=== PATIENT | male | born 1995 | race Caucasian/White ===

== ENCOUNTER 2021-05-12 10:13 | Inpatient (IN) | payer BC, SELFPAY ==
[2021-05-12] VITALS (47 sets, daily range): BP systolic 113–149; BP diastolic 53–83; PULSE 72–114; RESP 12–27; TEMP 36.8–37.2; O2SAT 89–98; BMI 29.3; BMI 29.1
--- NOTE | 2021-05-12 10:20 | XR_ITS ---
WS: [id number] Portable AP upright chest, 05/12/2021 Clinical Data: SOB Comparison: Portable chest, 05/11/2021. Findings: The 50% right pneumothorax remains the same. There is a shift of the heart and mediastinum from right to left. The left lung is fully expanded. Monitor leads are on the chest wall. XR/XR chest 1V portable [id number] Impression: No change in 50% right pneumothorax.
--- NOTE | 2021-05-12 10:25 | ECG_ITS ---
[facility] Test Date: 2021-05-12 Pat Name: Driss Giraldo Department: Room: Gender: Male Research Fellow: : 1995 Requested By: Thompson Salinas Order Number: [id number] Gallardo MD: Jayleen Johansen M.D. Measurements Intervals [place] Rate: 109 P: 89 RI: 167 QRS: 83 QRSD: 98 T: 60 QT: 323 QTc: 435 Interpretive Statements SINUS TACHYCARDIA POSSIBLE RIGHT VENTRICULAR CONDUCTION DELAY [RSR (QR) IN V1/V2] MODERATE VOLTAGE CRITERIA FOR LVH, CONSIDER NORMAL VARIANT [MEETS CRITERIA IN ONE OF: R(aVL), S(V1), R(V5), R(V5/V6)+S(V1)] MODERATE ST DEPRESSION [0.05+ mV ST DEPRESSION] No previous ECG available for comparison Electronically Signed On 05-13-2021 14:17:47 CDT by Jayleen Johansen M.D. [id number]
--- NOTE | 2021-05-12 10:32 | ED_ITS ---
HPI - SOB/Dyspnea General: Chief Complaint: Shortness of Breath/Dyspnea Stated Complaint: SOB Time Seen by Provider: 05/12/21 10:20 History of Present Illness: HPI Narrative: This patient is a 26-year-old male who presents to the emergency department with complaint of shortness of breath that began yesterday morning. Patient was seen at a local clinic had a chest x- ray was read as normal however radiology over read stated that the patient appeared to have a pneumothorax. Patient denies any history of pneumothorax denies any history of coughing denies any history of smoking. Upon evaluation in the emergency department bedside chest x-ray performed appears to have greater than 50% loss of lung volume on the right due to spontaneous pneumothorax. Patient is slightly tachycardic at 112. I did discuss at length with patient about options. He is agreeable to have chest tube placed right chest. Nursing staff will get consents. Will prepare for chest MD elicited complaint: shortness of breath Exacerbating factors: nothing Relieving factors: nothing Associated symptoms: Deny abdominal pain, chest pain, extremity pain, fever(s), lightheadedness, nausea, palpitations or vomiting Review of Systems General: Reports: 10 or more systems reviewed and unremarkable except in HPI and below Const: Denies: fever(s), chills, body aches or fatigue Eyes: Denies: change in vision or blurry vision ENMT: Denies: throat pain, hoarseness or mouth pain Card: Denies: chest pain, palpitations, irregular heart rhythm, edema, swelling of feet/ankles or lightheadedness Resp: Reports: dyspnea; Denies: productive cough, non-productive cough, wheezing or pain on inspiration GI: Denies: abdominal pain, nausea or vomiting : Denies: flank pain, dysuria, urinary frequency, urinary urgency or urinary hesitancy Musc: Denies: neck pain, back pain, extremity pain, extremity swelling, joint pain, joint swelling, joint redness, joint warmth or limited range of motion Skin/Breast: Denies: rash, pruritus, erythema or skin tenderness Neuro: Denies: headache(s), numbness in extremities or weakness in extremities Psych: Denies: anxiety or depression Physical Exam Const: COMMON NORMALS: no acute distress, average body habitus, patient oriented x3, no limitations, healthy appearing, alert and well nourished HENMT: COMMON NORMALS: normocephalic, atraumatic, hearing grossly normal bilaterally, external ears normal, EAC's normal, TM's normal bilaterally, Normal external nose present, Normal nasal mucous membranes and turbinates present, moist oral mucous membranes, oropharynx normal, dentition normal and gingiva normal HEAD & SCALP: normocephalic and atraumatic NOSE: Normal external nose present and Normal nasal mucous membranes and turbinates present EXTERNAL EAR: Yes external ears normal EXTERNAL AUDITORY CANAL: EAC's normal TYMPANIC MEMBRANE: TM's normal bilaterally Neck/C-Spine: COMMON NORMALS: full ROM, no lymphadenopathy, supple, no meningeal signs, no JVD, Thyroid normal and No carotid bruits THYROID: Thyroid normal Chest: COMMONS NORMALS: normal inspection of the chest, normal palpation of entire chest wall, normal inspection of the breasts and normal palpation of the breasts Breast/axilla inspection: Yes normal inspection of the breasts BREAST/AXILLA PALPATION: Yes normal palpation of the breasts Resp: COMMON NORMALS: normal respiratory effort, No retractions and No use of accessory muscles EFFORT & INSPECTION: Yes able to speak in complete sentences AUSCULTATION: breath sounds absent (Breath sounds absent in the upper lobes.) on the right Cardio: COMMON NORMALS: no JVD, regular rate, regular rhythm, S1 normal heart sound present, S2 normal heart sound present, No gallops present (Cardio), No clicks present (Cardio), No murmurs present (Cardio), No rub (Cardio) and Peripheral pulses 2+ throughout RATE: regular rate RHYTHM: regular rhythm HEART SOUNDS: S1 normal heart sound present and S2 normal heart sound present PERIPHERAL PULSES: Peripheral pulses 2+ throughout GI: COMMON NORMALS: Normal to inspection, nondistended, normoactive bowel sounds present, Soft to palpation, non-tender, No hepatosplenomegaly present, no masses and no bruits PALPATION: Yes Soft to palpation and Yes No hepatosplenomegaly present : COMMON NORMALS: Yes no CVA tenderness BLADDER/KIDNEY EXAM: Yes no CVA tenderness Back/Pelvis: COMMON NORMALS: no CVA tenderness, thoracic and lumbar spine normal to inspection, no thoracic nor lumbar tenderness, thoraco-lumbar ROM normal and straight leg raise negative bilaterally Extremity: COMMON NORMALS: normal to inspection, full ROM, capillary refill normal, no joint enlargement, no clubbing, cyanosis or edema, no calf tenderness and no pedal edema Neuro: COMMON NORMALS: patient oriented x3 SENSORIUM/ORIENTATION: Yes alert MENINGEAL SIGNS: Yes no meningeal signs Procedures Chest Tube Chest Tube 1: Chest Tube Location: right and anterior axillary line Chest Tube Prep: Yes betadine prep and sterile drapes applied Local Anesthetic: lidocaine 2% Amount of anesthesia used (mL): 20 Incision Made With: #11 blade Post Procedure: sutured to skin and sterile dressing applied Tube Drainage: none Post Procedure CXR?: Yes Progress: Patient tolerated well without difficulty. Course Reevaluation(s): Reevaluation #1: Patient properly consented. Reviewed x-ray with patient. Chest tube placed without difficulty. Low wall suction with waterseal. 20 Azerbaijani chest tube. In the right for the 6 intercostal space. Anterior axillary line. Patient tolerated without difficulty Time: 11:12 Consultations: Consultation #1: I spoke to Dr. Miller who is agreeable to admit this patient for continued monitoring. Also spoke to Dr. Lovett pulmonology. He is agreed to manage chest tube. Time: 12:18 Vital Signs: Vital signs: Vital Signs Respiratory Rate 18 05/12/21 10:40 MDM - SOB/Dyspnea MDM Narrative: Medical decision making narrative: This patient is a 26-year-old male who presents to the emergency department with complaint of shortness of breath that began yesterday morning. Patient was seen at a local clinic had a chest x-ray was read as normal however radiology over read stated that the patient appeared to have a pneumothorax. Patient denies any history of pneumothorax denies any history of coughing denies any history of smoking. Upon evaluation in the emergency department bedside chest x-ray performed appears to have greater than 50% loss of lung volume on the right due to spontaneous pneumothorax. Patient is slightly tachycardic at 112. I did discuss at length with patient about options. He is agreeable to have chest tube placed right chest. Nursing staff will get consents. Patient properly consented. Reviewed x-ray with patient. Chest tube placed without difficulty. Low wall suction with waterseal. 20 Azerbaijani chest tube. In the right for the 6 intercostal space. Anterior axillary line. Patient tolerated without difficulty I spoke to Dr. Miller who is agreeable to admit this patient for continued monitoring. Also spoke to Dr. Lovett pulmonology. He is agreed to manage chest tube. Dr. Miller states he will notify general surgery. For additional consult Medical Records: Attestation: I reviewed the patient's medical records. Lab Data: Attestation: I reviewed the patient's lab results. Labs: Lab Results 05/12/21 05/12/21 05/12/21 Range/Units 10:30 10:30 10:30 WBC 6.5 (4.0-10.0) 10^3/ uL RBC 5.55 H (4.1-5.3) 10^6/u L Hgb 16.5 (11.7-16.6) g/dL Hct 48.3 (42.0-52.0) % MCV 87.0 (80-94) fL MCH 29.7 (28.0-34.0) pg MCHC 34.2 (30.0-36.0) g/dL RDW 12.2 (12.1-15.1) % Plt Count 304 (130-400) 10^3/c mm MPV 9.3 (7.4-10.4) fL Neut % (Auto) 65.5 % Lymph % (Auto) 24.7 % [place] % (Auto) 8.6 % Eos % (Auto) 0.5 % Baso % (Auto) 0.5 % Neut # (Auto) 4.26 (1.8-7.7) 10^3/u L Lymph # (Auto) 1.6 (0.8-4.8) 10^3/u L [place] # (Auto) 0.6 (0.2-0.9) 10^3/u L Eos # (Auto) 0.0 (0.0-0.8) 10^3/u L Baso # (Auto) 0.0 (0.0-0.1) 10^3/u L Nucleated RBC % (a uto) 0 % Nucleated RBCs # 0.0 /100WBC PT 14.20 (12.1-14.9) SECO NDS INR 1.07 (0.8-1.2) APTT 29.9 (23.9-36.7) SECO NDS Sodium 137 (136-145) mmol/L Potassium 4.3 (3.5-5.1) mmol/L Chloride 99 (98-107) mmol/L Carbon Dioxide 26 (22-29) mmol/L Anion Gap 16.3 (5-19) BUN 12 (6-20) mg/dL Creatinine 0.8 (0.7-1.2) mg/dL GFR Calculation 118.8 (90-130) mL/min Glucose 95 (65-115) mg/dL Calculated Osmolal ity 284 L (285-295) mOsm/k g Calcium 10.3 (8.5-10.5) mg/dL Imaging Data^: CXR: Attestation: I personally reviewed and interpreted this imaging study as follows: Radiologist's impression: Findings: The 50% right pneumothorax remains the same. There is a shift of the heart and mediastinum from right to left. The left lung is fully expanded. Monitor leads are on the chest wall. CX2: Attestation: I personally reviewed and interpreted this imaging study as follows: Radiologist's impression: Impression: Insertion of right chest tube with almost total reexpansion of the right lung. EKG Data^: EKG 1: Attestation: I personally reviewed and interpreted this EKG as follows: EKG Interpretation Date: 05/12/21 EKG interpretation time: 10:33 Prior EKG tracings: not available for review Interpretation: Sinus tachycardia heart rate 109. Nonspecific EKG changes. Discharge Plan Discharge Patient Disposition: Admitted As Inpatient Clinical Impression: Spontaneous pneumothorax Condition: Stable Coding Level of Care Code ED Machine Cementer for Chg Fwd Exam Comprehensive
[2021-05-12] MEDS: sodium chloride 0.9% 500 ML IV (10:38)
[2021-05-12 10:39] LABS: Basophils % 0.5 %; Eosinophils % 0.5 %; Hematocrit 48.3 % (42.0-52.0); Hemoglobin 16.5 g/dL (11.7-16.6); Lymphocytes # 1.6 10^3/uL (0.8-4.8); Lymphocytes % 24.7 %; Mean Corpuscular HGB Conc 34.2 g/dL (30.0-36.0); Mean Corpuscular Hemoglobin 29.7 pg (28.0-34.0); Mean Platelet Volume 9.3 fL (7.4-10.4); Monocytes # 0.6 10^3/uL (0.2-0.9); Monocytes % 8.6 %; Neutrophils # 4.26 10^3/uL (1.8-7.7); Neutrophils % 65.5 %; Nucleated Red Blood Cells % 0 %; Platelet Count 304 10^3/cmm (130-400); Red Blood Count 5.55 10^6/uL (4.1-5.3); Red Cell Distribution Width 12.2 % (12.1-15.1); White Blood Count 6.5 10^3/uL (4.0-10.0)
[2021-05-12] MEDS: lidocaine 2% INJ 20 mL INJECTION (10:39)
[2021-05-12] MEDS: ondansetron 2 mg/ML SDV 2 mL 4 MG IVP (10:40)
[2021-05-12] MEDS: morphine 4 mg/mL SDV 1 mL IVP (10:40)
[2021-05-12] MEDS: midazolam 1 mg/mL INJ 2 mL 0.5 MG IVP (10:42)
[2021-05-12 10:51] LABS: INR 1.07 (0.8-1.2)
[2021-05-12 10:52] LABS: Partial Thromboplastin Time 29.9 SECONDS (23.9-36.7)
[2021-05-12 11:01] LABS: Anion Gap 16.3 (5-19); Blood Urea Nitrogen 12 mg/dL (6-20); Calcium 10.3 mg/dL (8.5-10.5); Carbon Dioxide 26 mmol/L (22-29); Chloride 99 mmol/L (98-107); Glomerular Filtration Rate 118.8 mL/min (90-130); Glucose 95 mg/dL (65-115); Osmolality Calculated 284 mOsm/kg (285-295); Potassium 4.3 mmol/L (3.5-5.1); Sodium 137 mmol/L (136-145)
--- NOTE | 2021-05-12 11:10 | XR_ITS ---
WS: [id number] Portable AP semiupright chest, 05/12/2021, 1109 hours. Clinical Data: Chest Tube Comparison: Portable chest, 05/12/2021, 1023 hours Findings: A right chest tube has been inserted and the lung has almost totally reexpanded. Only a 5 o r 10% right apical pneumothorax is present. The left lung remains fully expanded. There are monitor l roz on the chest wall. XR/XR chest 1V portable [id number] Impression: Insertion of right chest tube with almost total reexpansion of the right lung.
--- NOTE | 2021-05-12 11:33 | PC.PHAR ---
pt states he takes care of his own medications-pt states he takes no rx medications and states he has only been taking the otc medications entered
--- NOTE | 2021-05-12 12:50 | P.HP_ITS ---
Providers/Chief Complaint Admitting Physician: Kristin Miller Chief Complaint: SOB History of Present Illness Driss Giraldo JR is a 26 year old male With no past medical history who presented to the hospital with a 2 day history of chest pain. This was associated with mild respiratory distress. Patient was seen over increased clinic where he had a chest x-ray performed.This showed a moderate right-sided pneumothorax with compression of approximately 50% of underlying lung. At this point he was contacted and advised to present to emergency room immediately for chest tube placement. Left lung was well area did. Patient denies any recent fever, chills, nausea vomiting. No recent trauma.Upon arrival to emergency room a right-sided chest tube was placed with repeat x-ray showing almost total re- expansion of the right lung.Laboratory workup showed a WBC of 6.5, hemoglobin of 16.5, hematocrit of 48.3 and platelet count of 304. INR 1.07. Sodium 137, potassium 4.3, chloride 99, bicarb 26, BUN 12 and creatinine 0.8. Urinalysis was negative. Pulmonary medicine was consulted in ER. Review of Systems General: Reports: 10 or more systems reviewed and unremarkable except in HPI and below Medications/Allergies Home Medications Medication Instructions Recorded Confirmed Last Taken Type acetaminophen [Tylenol Extra 1,000 mg PO PRN 05/12/21 05/12/21 05/11/21 History Strength] calcium carbonate [Tums] 200 mg PO PRN 05/12/21 05/12/21 05/11/21 History ibuprofen 400 mg PO PRN 05/12/21 05/12/21 Unknown History Allergies Allergy/AdvReac Type Severity Reaction Status Date / Time No Known Allergies Allergy Unverified 05/12/21 11:33 PFSH Acute PFSH: Medical History (Updated 05/12/21 @ 14:54 by Kristin Miller MD) No pertinent family history No pertinent past medical history Surgical History (Updated 05/12/21 @ 14:54 by Kristin Miller MD) No pertinent past surgical history Social History (Updated 05/12/21 @ 14:55 by Kristin Miller MD) Smoking and tobacco status: never smoked Alcohol intake: current Substance/Drug Use: never Vitals/I&O/Wt Last Vital Signs Pulse 91 05/12/21 14:41 Resp 12 05/12/21 14:41 BP 128/69 05/12/21 14:41 Pulse Ox 98 05/12/21 14:41 05/11/21 05/12/21 05/12/21 22:59 06:59 14:59 Intake Total 500 / 500 Balance 500 / 500 Weight last 48 hrs Weight 82.554 kg Physical Exam Narrative: EXAM NARRATIVE: General-alert awakeAnd oriented x3 HEENT-grossly unremarkable CVS -regular rate rhythm Chest- decreased a right base otherwise clear Abdomen-soft nontender nondistended Extremities-no edema Data : 05/12/21 10:30 05/12/21 10:30 A&P Assessment and plan (1) Spontaneous pneumothorax: Chest tube in place Air leak noted Continue with suction Repeat Chest x-ray in am If no air-leak in am then place to water seal Pulmonary medicine on board CTS consult not available Pain control Status: Acute Attestations Medical Necessity Statement*: Require over 2 midnight stay in hospital for management of spontaneous pneumothorax requiring right-sided chest tube placement Time Spent in Patient Care: Greater than 35 minutes (>than 50% of time spent in counselling and/or direct pt care on unit) . Coding Level of Care Code Acute Tuckpointer Cleaner Caulker for Kevin Bower Diagnoses Spontaneous pneumothorax J93.83
[2021-05-12] MEDS: HYDROcodone-acetaminophen 5-325 mg Tablet 1 TAB PO ×3 (13:51→23:35)
[2021-05-12] MEDS: sodium chloride 0.9% 1,000 ML 75 ML IV (13:52)
[2021-05-12 14:21] LABS: Add Urine Microscopic? NO; Charge for UA Resulting for Rev
[2021-05-12 14:24] LABS: Bilirubin Urine Neg (Negative); Blood Urine Neg (Negative); Glucose Urine UA Norm (Normal); Ketones Urine 1+ (Negative); Leukocyte Esterase Urine Negative (Negative); Nitrate Urine Negative (Negative); Protein Urine Neg (Negative); Urine Appearance Clear (CLEAR); Urine Color Dark Yellow (Yellow); Urobilinogen Urine Norm (Negative); pH Urine 5 (5-7)
--- NOTE | 2021-05-12 17:06 | PM.CONSULT ---
Providers/Reason For Consult Consulting Physician/Specialty*: Pulmonary critical care medicine Reason for Consult*: Primary spontaneous pneumothorax Attending Physician: Kristin Miller History of Present Illness History of Present Illness Driss Giraldo JR is a 26 year old male who presented to the hospital after receiving a phone call from the radiology facility. I evaluated the patient in the ICU. The patient tells me that yesterday he started experiencing chest pain on the right side and shortness of breath that started around in the morning time. The patient received a chest x-ray around noontime yesterday and was told that it was normal. However today on further review the patient was found to have a right-sided pneumothorax and was asked to come to the hospital. The patient complains of persistent chest pain and some degree of shortness of breath until he presented to the hospital today in the emergency department the patient underwent a chest tube placement with complete resolution of the pneumothorax. The patient was then transferred to ICU for further care. I had reviewed the patient's chest x-rays that were performed yesterday and today. Interestingly, there has been no significant increase in the pneumothorax. There was no evidence of tension pneumothorax either. There was mild mediastinal reported shift. However this had remained stable for almost 24 hours. In the ICU, the patient is complaining of chest pain at the chest tube insertion site with movement and coughing. The patient was initially on suction and when I went to see the patient he was on waterseal. There is evidence of mild air leak on forced expiration. The patient denies any history of smoking or marijuana use. Review of Systems Narrative: General: No fevers chills night sweats or fatigue Skin: No rash HEENT: No nasal congestion, rhinitis, sinusitis, sneezing, hoarseness of voice. Neck: There is no neck swelling, mass or swollen glands. Respiratory: Please see my HPI. Cardiovascular: No palpitation Gastrointestinal: No abdominal pain, nausea, vomiting, melena Musculoskeletal: No joint pain or swelling, muscle weakness, morning stiffness, numbness or tingling. Neurological: Patient is awake alert and oriented x3, no paralysis, gross motor function is normal. Psychiatric: No anxiety or depression. Meds/Allergies Home Medications and Allergies Home Medications Medication Instructions Recorded Confirmed Last Taken Type acetaminophen [Tylenol Extra 1,000 mg PO PRN 05/12/21 05/12/21 05/11/21 History Strength] calcium carbonate [Tums] 200 mg PO PRN 05/12/21 05/12/21 05/11/21 History ibuprofen 400 mg PO PRN 05/12/21 05/12/21 Unknown History Allergies Allergy/AdvReac Type Severity Reaction Status Date / Time No Known Allergies Allergy Unverified 05/12/21 11:33 Current Medications Current Medications Generic Name Dose Route Start Last Admin Trade Name Freq PRN Reason Stop Dose Admin Hydrocodone Bitart/Acetaminophen 1 tab 05/12/21 12:16 05/12/21 13:51 Hydrocodone-Acetaminophen 5-325 Mg Tablet PO 1 tab Q4H PRN Administration MODERATE PAIN Sodium Chloride 1,000 mls @ 75 mls/hr 05/12/21 12:30 05/12/21 13:52 Sodium Chloride 0.9% IV 75 mls/hr .[id number] GIL Administration PFSH Acute PFSH: Medical History No pertinent family history No pertinent past medical history Surgical History No pertinent past surgical history Social History Smoking and tobacco status: never smoked Alcohol intake: current Substance/Drug Use: never Vitals/I&O/Wt Last Vital Signs Temp 98.6 F 05/12/21 14:00 Pulse 87 05/12/21 16:04 Resp 16 05/12/21 16:02 BP 131/77 05/12/21 15:48 Pulse Ox 95 05/12/21 16:02 05/12/21 05/12/21 05/12/21 06:59 14:59 22:59 Intake Total 500 / 500 Balance 500 / 500 Weight last 48 hrs Weight 180 lb 8 oz Weight 182 lb Physical Exam Narrative: EXAM NARRATIVE: General: Patient is awake alert and oriented, in no distress. Mild discomfort with movement due to pain at the chest tube insertion site Neck: No JVD Respiratory: Inspection: No visible deformity of the chest wall, chest tube in place Palpation: Trachea is mildly deviated to the right, reduced expansion the right hemithorax Percussion: Bilateral tympanic percussion note both anterior and posteriorly Auscultation: Mildly reduced breath sound on the right, no crackles wheezing or rhonchi Cardiovascular: Regular rate and rhythm, S1-S2 present, no murmur, no peripheral edema. Abdomen: Soft, nontender, nondistended, positive bowel sound Musculoskeletal: No obvious joint deformity, normal gait. Skin: No rash, no evidence of erythema nodosum or multiforme. Neuro: Mental status is normal, no gross cranial nerve deficit, normal motor and coordination. A&P Assessment and plan (1) Primary spontaneous pneumothorax: The patient is suffering from primary spontaneous pneumothorax. He does not have any previous history of lung disease. Interestingly, there has been no significant progression of the pneumothorax in the past 24 hours. There had been some concern for mediastinal shift however there has been no definitive evidence of tension. The patient was not hypotensive or hypoxic. It appears, that the right-sided pneumothorax had resolved after the chest tube insertion. The chest tube was initially on suction. I did not see any significant air leak on suction. There was small volume air leak with forced expiration. For now, I will put the patient on waterseal. We will repeat a chest x-ray at 9 PM. If there is no reaccumulation of the pneumothorax, the patient can stay on waterseal. Tomorrow morning at 6 AM, we will obtain a chest x-ray and if there is no pneumothorax, the chest tube can be clamped and repeat chest x-ray can be obtained in 2 hours. If there is no reaccumulation of pneumothorax, at that point, the chest tube can be safely removed. I will communicate this with the ICU team tomorrow. The patient needs pain control as well as DVT prophylaxis. He does not need pleurodesis at this time. Pleurodesis would be recommended if the patient develops a second episode of primary spontaneous pneumothorax. Status: Acute Coding Level of Care Code Acute Senior Quality Control Inspector for [facility] Diagnoses Primary spontaneous pneumothorax J93.11
[2021-05-12] MEDS: HYDROmorphone 1 mg/mL INJ 1 mL 0.4 MG IVP (20:27)
--- NOTE | 2021-05-12 21:00 | XRR_ITS ---
PROCEDURE INFORMATION: Exam: XR Chest Exam date and time: 05/12/2021 9:00 PM Age: 26 years old Clinical indication: Condition or disease; Other: F/u chest tube; Additional info: Pneumothorax TECHNIQUE: Imaging protocol: XR of the chest. Views: 1 view. Total images: 1 COMPARISON: CR XR chest 1V portable [id number] 05/12/2021 11:07 AM FINDINGS: Tubes, catheters and devices: Right thoracotomy tube unchanged in position. Lungs: Minimal discoid atelectasis right lung base. No other evidence of active interstitial or alveolar airspace disease. Pleural spaces: No visible residual right pneumothorax. No visible pleural effusion. Heart/Mediastinum: Cardiac structures and configuration within normal limits. Bones/joints: Unremarkable. XR/XR chest 1V [id number] IMPRESSION: No visible residual right pneumothorax.
[2021-05-13] VITALS (61 sets, daily range): BP systolic 118–148; BP diastolic 61–80; PULSE 68–99; RESP 7–27; TEMP 36.7–37.1; O2SAT 93–97
[2021-05-13] MEDS: HYDROmorphone 1 mg/mL INJ 1 mL 0.4 MG IVP ×2 (03:58→12:57)
[2021-05-13 05:02] LABS: Basophils % 0.3 %; Eosinophils # 0.1 10^3/uL (0.0-0.8); Eosinophils % 1.4 %; Hematocrit 44.2 % (42.0-52.0); Hemoglobin 14.9 g/dL (11.7-16.6); Lymphocytes # 1.3 10^3/uL (0.8-4.8); Lymphocytes % 22.8 %; Mean Corpuscular HGB Conc 33.7 g/dL (30.0-36.0); Mean Corpuscular Hemoglobin 30.1 pg (28.0-34.0); Mean Corpuscular Volume 89.3 fL (80-94); Mean Platelet Volume 9.2 fL (7.4-10.4); Monocytes # 0.6 10^3/uL (0.2-0.9); Neutrophils # 3.85 10^3/uL (1.8-7.7); Neutrophils % 65.3 %; Nucleated Red Blood Cells % 0 %; Platelet Count 211 10^3/cmm (130-400); Red Blood Count 4.95 10^6/uL (4.1-5.3); Red Cell Distribution Width 12.4 % (12.1-15.1); White Blood Count 5.9 10^3/uL (4.0-10.0)
[2021-05-13] MEDS: sodium chloride 0.9% 1,000 ML 75 ML IV (05:07)
[2021-05-13 05:15] LABS: Alanine Aminotransferase 13 U/L (0-41); Albumin Level 4.2 g/dL (3.5-5.2); Alkaline Phosphatase 54 IU/L (40-130); Aspartate Amino Transferase 14 U/L (0-40); Blood Urea Nitrogen 10 mg/dL (6-20); Calcium 9.2 mg/dL (8.5-10.5); Carbon Dioxide 26 mmol/L (22-29); Chloride 102 mmol/L (98-107); Globulin 2.7 g/dL (1.3-4.6); Glomerular Filtration Rate 138.6 mL/min (90-130); Glucose 101 mg/dL (65-115); Osmolality Calculated 287 mOsm/kg (285-295); Sodium 139 mmol/L (136-145); Total Bilirubin 1.7 mg/dL (0.15-1.2); Total Protein 6.9 g/dL (6.6-8.7)
[2021-05-13] MEDS: HYDROcodone-acetaminophen 5-325 mg Tablet 1 TAB PO (06:22)
--- NOTE | 2021-05-13 07:00 | XR_ITS ---
WS: [id number] Portable AP upright chest, 05/13/2021 Clinical Data: respiratory failure Comparison: 05/12/2021 Findings: No nodules, masses or effusions are seen. The heart is normal. The pulmonary vascularity is not increased. No pneumonia or pneumothorax is seen. The chest tube remains in good position ending in the superior aspect of the right pleural space.. Monitor leads are on the chest wall. XR/XR chest 1V portable [id number] Impression: No recurrent pneumothorax.
--- NOTE | 2021-05-13 11:30 | XR_ITS ---
WS: [id number] Portable AP upright chest, 05/13/2021, 1139 hours. Clinical Data: Pneumothorax Comparison: Portable chest, today, 0714 hours. Findings: The right lung remains expanded. The position of the right chest tube is not changed. There are monitor leads on the chest wall. XR/XR chest 1V portable [id number] Impression: Continued expansion of right lung with no recurrent pneumothorax.
--- NOTE | 2021-05-13 12:50 | P.PN_ITS ---
Subjective Subjective: Interval history: Noted improvement in respiratory status. Was complaining of pain due to chest tube. No fever chills overnight. No nausea vomiting. Patient did however note that he was diagnosed with COVID-19 infection 3 months prior however during that time did not have any respiratory complaints. Does not smoke however is exposed to significant secondhand smoke. Medications: Reviewed: Yes Vitals/I&O/Wt Last Vital Signs Temp 98.1 F 05/13/21 06:45 Pulse 98 05/13/21 11:15 Resp 17 05/13/21 11:15 BP 141/77 05/13/21 11:15 Pulse Ox 97 05/13/21 11:15 05/12/21 05/13/21 05/13/21 22:59 06:59 14:59 Intake Total 120 / 620 1200 / 1820 Output Total 325 / 325 Balance -205 / 295 1200 / 1495 Weight last 48 hrs Weight 83.325 kg Weight 81.873 kg Weight 82.554 kg Physical Exam Narrative: EXAM NARRATIVE: General-alert awakeAnd oriented x3 HEENT-grossly unremarkable CVS -regular rate rhythm Chest- decreased a right base otherwise clear Abdomen-soft nontender nondistended Extremities-no edema Data : 05/13/21 04:45 05/13/21 04:45 A&P Assessment and plan (1) Spontaneous pneumothorax: Chest tube in place No further air leak Chest x-ray- showed no evidence of recurrent pneumothorax Chest tube was placed to water seal Management per pulmonary medicine CTS consult not available Pain control Will transfer to regular medical floor Status: Acute Attestations Medical Necessity Statement*: require further hospitalization for management of pneumothorax status post chest tube Time Spent in Patient Care: Greater than 35 minutes (>than 50% of time spent in counselling and/or direct pt care on unit) . Coding Level of Care Code Acute Multi Share Program Coordinator for Kevin Bower Diagnoses Spontaneous pneumothorax J93.83
--- NOTE | 2021-05-13 13:26 | P.PN_ITS ---
Subjective Subjective: Interval history: The patient was seen and examined. He had done well overnight. The pain was controlled with pain medications. Chest x-ray at 9 PM last night did not reveal any pneumothorax. After that, this morning the chest tube was clamped repeat chest x-ray in 2 hours did not reveal any pneumothorax. The chest tube was subsequently removed without any difficulty. Medications: Reviewed: Yes Vitals/I&O/Wt Last Vital Signs Temp 98.1 F 05/13/21 06:45 Pulse 98 05/13/21 11:15 Resp 16 05/13/21 12:57 BP 141/77 05/13/21 11:15 Pulse Ox 97 05/13/21 12:57 05/12/21 05/13/21 05/13/21 22:59 06:59 14:59 Intake Total 120 / 620 1200 / 1820 Output Total 325 / 325 Balance -205 / 295 1200 / 1495 Weight last 48 hrs Weight 183 lb 11.2 oz Weight 180 lb 8 oz Weight 182 lb Physical Exam Narrative: EXAM NARRATIVE: General: Patient is awake alert and oriented, in no distress Respiratory: Auscultation: Clear to auscultation bilaterally, no crackles wheezing or rhonchi Cardiovascular: Regular rate and rhythm, S1-S2 present, no murmur, no peripheral edema. Abdomen: Soft, nontender, nondistended, positive bowel sound Musculoskeletal: No obvious joint deformity, normal gait. Skin: No rash, no evidence of erythema nodosum or multiforme. Neuro: Mental status is normal, no gross cranial nerve deficit, normal motor and coordination. Data : 05/13/21 04:45 05/13/21 04:45 Attestation for Other Data: I personally reviewed and interpreted the following: Other data: I have reviewed the patient's laboratory, microbiologic and radiologic data. The chest x-ray obtained at 9 PM last night and 7 AM this morning did not reveal any recurrence of pneumothorax. A&P Assessment and plan (1) Primary spontaneous pneumothorax: The chest tube has been removed. I will obtain a repeat chest x-ray in 2 hours time. If there is no symptoms or significant pneumothorax, the patient will be ready for discharge. I will follow up with him on Sunday in the office. Status: Acute Attestations Medical Necessity Statement*: Will defer to the primary team Coding Level of Care Code Acute Senior Economist for Chg Fwd Diagnoses Primary spontaneous pneumothorax J93.11
--- NOTE | 2021-05-13 14:20 | PC.NURSE ---
Nurse Assisted Dr Lovett with chest drain removal. No complications. Orders Xray for 2 hours after removal to check for recurrent pneumo.
--- NOTE | 2021-05-13 15:30 | XR_ITS ---
WS: [id number] Portable AP upright chest, 05/13/2021, 1537 hours. Clinical Data: Pneumothorax Comparison: Portable chest, 05/13/2021, 1139 hours Findings: Right chest tube has been removed. The right lung remains expanded. There is no recurrence of the pneumothorax. XR/XR chest 1V portable [id number] Impression: Right lung remains expanded following removal of right chest tube.
--- NOTE | 2021-05-13 16:00 | P.DS_ITS ---
Discharge Providers Date of Admission: 05/12/21 12:16 Date of Discharge: May 13, 2021 Attending Provider at Admission: Kristin Miller Attending Provider at Discharge: Kristin Miller Diagnoses at Discharge Discharge Diagnosis (1) Spontaneous pneumothorax: Status: Acute (2) Primary spontaneous pneumothorax: Status: Acute Reason for Visit Reason for Visit: SOB Hospital Course Hospital Course 26 year old male with past medical history sig for covid-19 infection 3 months prior who presented to the hospital with a 2 day history of chest pain. This was associated with mild respiratory distress. Patient was seen over increased clinic where he had a chest x-ray performed.This showed a moderate right-sided pneumothorax with compression of approximately 50% of underlying lung. At this point he was contacted and advised to present to emergency room immediately for chest tube placement. Left lung was well area did. Patient denies any recent fever, chills, nausea vomiting. No recent trauma.Upon arrival to emergency room a right-sided chest tube was placed with repeat x-ray showing almost total re- expansion of the right lung.Laboratory workup showed a WBC of 6.5, hemoglobin of 16.5, hematocrit of 48.3 and platelet count of 304. INR 1.07. Sodium 137, potassium 4.3, chloride 99, bicarb 26, BUN 12 and creatinine 0.8. Urinalysis was negative. Pulmonary medicine was consulted in ER. Airleak had resolved. PTx resolved. Chest tube was removed and patient was cleared for discharge by pulmonary medicine. Physical Exam Narrative: EXAM NARRATIVE: General-alert awakeAnd oriented x3 HEENT-grossly unremarkable CVS -regular rate rhythm Chest- decreased a right base otherwise clear Abdomen-soft nontender nondistended Extremities-no edema Discharge Data Data Completed and Pending: Completed Studies During Hospitalization Category Date Time Status XR chest 1V [id number] Routine Exams 05/12/21 21:00 Completed XR chest 1V jane ble [id number] Routine Exams 05/13/21 07:00 Completed XR chest 1V jane ble [id number] Routine Exams 05/13/21 11:30 Completed XR chest 1V jane ble [id number] Routine Exams 05/13/21 15:30 Completed XR chest 1V jane ble [id number] Stat Exams 05/12/21 10:20 Completed XR chest 1V jane ble [id number] Stat Exams 05/12/21 11:10 Completed Labs from last 24 hours 05/13/21 05/13/21 04:45 04:45 WBC 5.9 RBC 4.95 Hgb 14.9 Hct 44.2 MCV 89.3 MCH 30.1 MCHC 33.7 RDW 12.4 Plt Count 211 MPV 9.2 Neut % (Auto) 65.3 Lymph % (Auto) 22.8 [place] % (Auto) 10.0 Eos % (Auto) 1.4 Baso % (Auto) 0.3 Neut # (Auto) 3.85 Lymph # (Auto) 1.3 [place] # (Auto) 0.6 Eos # (Auto) 0.1 Baso # (Auto) 0.0 Nucleated RBC % (a uto) 0 Nucleated RBCs # 0.0 Sodium 139 Potassium 4.0 Chloride 102 Carbon Dioxide 26 Anion Gap 15.0 BUN 10 Creatinine 0.7 GFR Calculation 138.6 H Glucose 101 Calculated Osmolal ity 287 Calcium 9.2 Total Bilirubin 1.7 H AST 14 ALT 13 Alkaline Phosphata se 54 Total Protein 6.9 Albumin 4.2 Globulin 2.7 Vitals: Last Vital Signs Temp 98.1 F 05/13/21 06:45 Pulse 88 05/13/21 12:45 Resp 16 05/13/21 12:57 BP 145/79 05/13/21 13:00 Pulse Ox 94 05/13/21 14:15 Discharge Plan Discharge Patient Disposition: Home Condition: Stable Prescriptions: Continued Tylenol Extra Strength 500 mg Tablet 1,000 mg PO PRN RF: 0 Tums 200 mg calcium (500 mg) Tablet,Chewable 200 mg PO PRN RF: 0 Discontinued ibuprofen 200 mg Tablet 400 mg PO PRN RF: 0 Discharge Orders: Discharge Order (Routine); Ordered 05/13/21 Ordered By: Kristin Miller Referrals: Varun Lovett MD [Physician] - 05/16/21 10:45 am (You have a follow up appointment with Dr. Lovett on SundayMay 16 at 8578. If you have any questions please call [phone]. ) Discharge Diet: Advance as tolerated Discharge Activity: Resume usual activity Patient Instructions: Spontaneous Pneumothorax (DC), Opioid Safety Discharge Attestations Time Spent in Discharge Care*: greater than 30 min Specific Discharge Activities: educating patient, discussing with pcp/other providers, discussing with behavioral health case manager/social workers/dc planners, documenting/other paperwork and evaluating patient/reviewing data Status at Discharge: Cognitive status at discharge: cognitively intact , Behavioral status at discharge: cooperative , Functional status at discharge: independent ambulation Overall status at discharge: patient is back to baseline Quality Metrics Clinical Quality Measures During this hospital stay, did patient experience: None Coding Level of Care Code Acute Chg FW DC note Diagnoses Spontaneous pneumothorax J93.83 Primary spontaneous pneumothorax J93.11
--- NOTE | 2021-05-13 16:10 | PC.NURSE ---
iv removed left ac whole intact discharged to family to [facility]
--- NOTE | 2021-05-16 19:41 | PC.NURSE ---
2 mg morphine given and failed to document waste
== END 2021-05-13 16:13 | disposition home or self-care (01) | DRG 201 ==
LOC: ER 12:18 → ICU 13:42
PROVIDERS: Admitting Provider Hospitalist; Emergency Provider Emergency Medicine; Visit Provider Hospitalist
DX: J93.11 Primary spontaneous pneumothorax (principal); Z86.16 Personal history of COVID-19; Z77.22 Contact with and (suspected) exposure to environmental tobacco smoke (acute) (chronic)
CPT/HCPCS: 32551; 36415; 71045; 80048; 80053; 81003; 85025; 85610; 85730; 93005; 94664; 96374; 96375; 99285; J1170; J2250; J2270; J2405; J7030; J7040

== ENCOUNTER 2021-06-13 08:09 | Emergency (ER) | payer BC, SELFPAY ==
[2021-06-13 08:21] VITALS: BP 144/91; PULSE 98; RESP 18; TEMP 36.8; O2SAT 97; BMI 29.0
--- NOTE | 2021-06-13 08:25 | XR_ITS ---
WS: [id number] XR chest 1V portable [id number] REASON FOR EXAM: hx of pneumothorax x 1 month ago FINDINGS: Lungs are fully inflated. Calcified granulomatous disease with no active pulmonary parenchymal or pleural disease. Normal heart and mediastinum. XR/XR chest 1V portable [id number] IMPRESSION: No significant abnormality.
--- NOTE | 2021-06-13 08:32 | ED_ITS ---
HPI - General Adult General: Chief complaint: General Medical Stated complaint: SOB, pain when breathing, Time Seen by Provider: 06/13/21 08:11 History of Present Illness: HPI narrative: Patient woke up this morning about 0 200 with shortness of breath and tachycardia. Patient says it feels like he is pneumothorax he had a month ago but this on the left side versus the right side. Onset (ago): hour(s) Associated symptoms: Reports dyspnea; Deny chest pain, headache(s), nausea, rash or vomiting Review of Systems Const: Denies: fever(s), chills or body aches Eyes: Denies: change in vision or blurry vision ENMT: Denies: throat pain or nasal congestion Card: Denies: chest pain or dyspnea on exertion Resp: Reports: dyspnea GI: Denies: abdominal pain, nausea or vomiting : Denies: difficulty urinating Musc: Denies: extremity pain Skin/Breast: Denies: rash Neuro: Denies: headache(s) Psych: Denies: anxiety or depression Milo/Lymph: Denies: easy bruising PFS ED PFSH: Medical History No pertinent family history No pertinent past medical history Surgical History No pertinent past surgical history Social History (Updated 05/16/21 @ 10:44 by Ynes Santos LPN) Smoking and tobacco status: never smoked Second hand smoke exposure: Yes Smoking risk assessment/counseling performed?: No Alcohol intake: current Counseling given: No Counseling given: No Lives independently: Yes Household members: none Marital status: Single Current occupational status: employed History of recent travel: No Current gender identity: Male Physical Exam Const: COMMON NORMALS: no acute distress, average body habitus and patient oriented x3 HENMT: COMMON NORMALS: normocephalic HEAD & SCALP: normal to inspection and normocephalic FACE & SINUS: normal facial exam Eye: COMMON NORMALS: conjunctivae normal GENERAL EYE: appearance normal, both eyes and all related structures CONJUNCTIVA: Yes conjunctivae normal Neck/C-Spine: COMMON NORMALS: no JVD Chest: COMMONS NORMALS: normal inspection of the chest Resp: COMMON NORMALS: normal respiratory effort and clear to auscultation bilaterally AUSCULTATION: clear to auscultation bilaterally Cardio: COMMON NORMALS: no JVD and regular rhythm RATE: tachycardic RHYTHM: regular rhythm GI: COMMON NORMALS: Normal to inspection, nondistended, normoactive bowel sounds present Extremity: COMMON NORMALS: normal to inspection and full ROM Neuro: COMMON NORMALS: patient oriented x3 Course Vital Signs: Vital signs: Vital Signs Temperature 99.0 F 06/13/21 08:43 Pulse Rate 87 06/13/21 08:43 Respiratory Rate 12 06/13/21 08:43 Blood Pressure 144/91 06/13/21 08:43 Pulse Oximetry 95 06/13/21 08:43 MDM - General Adult MDM Narrative: Medical decision making narrative: Radiology study negative patient asymptomatic this time patient was advised to start his exercise program up slowly to going full tilt which was a almost 2-hour bike ride last night. After being off for a couple 3 weeks. Discharge Plan Discharge Patient Disposition: Home Clinical Impression: Acute dyspnea Condition: Stable Prescriptions: No Action No Known Home Medications RF: 0 Discharge Orders: Discharge ED (Routine); Ordered 06/13/21 Ordered By: Rome Mckeon Discharge Diet: Usual diet Discharge Activity: Increase activity as tolerated Activity Restrictions/Additional Instructions: Slowly advance exercise program. Make sure you drink plenty of fluids eat a healthy diet. Follow-up your primary care provider if problems recur. Or return here. Coding Level of Care Code ED Wind Farm Operations Manager for Kevin Fwd Exam Comprehensive
[2021-06-13 08:43] VITALS: BP 144/91; PULSE 87; RESP 12; TEMP 37.2; O2SAT 95
== END 2021-06-13 09:02 | disposition home or self-care (01) ==
LOC: ER 08:49
PROVIDERS: Emergency Provider Nurse Practitioner Family
DX: R06.00 Dyspnea, unspecified (principal)
CPT/HCPCS: 71045; 99282

== ENCOUNTER 2023-07-16 03:27 | Observation (INO) | payer BC, SELFPAY ==
[2023-07-16] VITALS (18 sets, daily range): BP systolic 132–172; BP diastolic 66–87; PULSE 77–120; RESP 15–21; TEMP 36.6–37.7; O2SAT 92–99; BMI 30.7
[2023-07-16] MEDS: aluminum-mag hydrox-simethicon 30 ML, sucralfate oral liq 1 GM PO (03:45)
--- NOTE | 2023-07-16 03:47 | PC.NURSE ---
pt states I dont even really dream. I just go back and forth in my head. and I did eat a chicken bone today, that could be it. But, I doubt it, that is a lot of pain for a little chicken bone.
--- NOTE | 2023-07-16 03:55 | ED_ITS ---
HPI - Abdominal Pain General: Chief Complaint: Abdominal Pain Stated Complaint: bad gas Time Seen by Provider: 07/16/23 03:32 History of Present Illness: 28-year-old male with no prior history of medical conditions or belly surgeries. He presents with epigastric pain that is moved lower over time since 5 PM last night. He has vomited once. He has felt flushed, but not had a fever. No diarrhea. He notes the vomit looked like food to him. No other sick contacts. He relates the pain like a bad gas pain . Associated Symptoms: Reports nausea and vomiting; Denies diarrhea, fever(s), hematochezia and melena Review of Systems Const: Denies: fever(s) ENMT: Denies: throat pain Card: Denies: chest pain or palpitations Resp: Denies: dyspnea, productive cough or non-productive cough GI: Reports: abdominal pain, nausea and vomiting; Denies: diarrhea, hematochezia or melena : Denies: flank pain PFSH ED PFSH: Medical History No pertinent family history No pertinent past medical history Surgical History No pertinent past surgical history Social History Smoking and tobacco status: never smoked Second hand smoke exposure: Yes Smoking risk assessment/counseling performed?: No Alcohol intake: current Counseling given: No Substance/Drug Use: never Counseling given: No Lives independently: Yes Household members: none Marital status: Single Current occupational status: employed Do you think of yourself as: Straight/Heterosexual Current gender identity: Male Physical Exam Const: COMMON NORMALS: no acute distress GENERAL APPEARANCE: cooperative; not ill appearing and not frail appearing HENMT: COMMON NORMALS: normocephalic, atraumatic and Normal external nose present HEAD & SCALP: normocephalic and atraumatic FACE & SINUS: normal facial exam and face symmetric NOSE: Normal external nose present Eye: COMMON NORMALS: Equal, round and reactive pupils present and EOMs intact bilaterally PUPIL: Yes Equal, round and reactive pupils present Neck/C-Spine: GENERAL: Yes trachea midline Chest: CHEST: Yes Symmetrical chest wall rise Resp: COMMON NORMALS: normal respiratory effort, No retractions, No use of accessory muscles and clear to auscultation bilaterally AUSCULTATION: clear to auscultation bilaterally Cardio: COMMON NORMALS: regular rate and regular rhythm RATE: regular rate RHYTHM: regular rhythm GI: INSPECTION: Yes abdominal distension (mild) PALPATION: Yes Tenderness to palpation present (GI) Details: RLQ and RUQ Extremity: COMMON NORMALS: no pedal edema Neuro: SYLVAIN COMA SCALE: document GCS findings Sylvain coma scale eye opening: Spontaneous Sylvain coma scale verbal response: Orientated Sylvain coma scale motor response: Obey commands [place] coma scale total score: 15 SENSORY EXAM: Yes extremities (intact) Psych: COMMON NORMALS: speech normal SPEECH: Yes normal speech Skin: COMMON NORMALS: no rashes or lesions noted GENERAL SKIN EXAM: no rashes or lesions noted Course Vital Signs: Vital signs: Vital Signs Temperature 98.2 F 07/16/23 03:33 Pulse Rate 98 07/16/23 03:42 Respiratory Rate 16 07/16/23 03:42 Blood Pressure 139/81 07/16/23 05:00 Pulse Oximetry 98 07/16/23 04:49 Oxygen Delivery Me thod Room Air 07/16/23 04:49 MDM - Abdominal Pain Medical Decision Making Patient is afebrile. He is quite tender in his right lower quadrant. Vitals are stable. White blood cell count is 14.6. Other laboratory is not terribly remarkable. CRP is minimally elevated. CT scan shows a distended appendix with wall thickening and inflammatory changes. Hanging Zosyn. Call out to surgery. Spoke with surgery. Recommendations are admission to their service, continue Zosyn, fluids, n.p.o., and evaluation by them a bit later this morning for likely surgery. Lab Data 07/16/23 04:12 07/16/23 04:12 Labs/Radiology: Radiology Impressions Abdomen/Pelvis CT 07/16/23 04:18 IMPRESSION: The appendix is distended up to 1.6 cm in diameter, with 1.0 cm appendicolith along the base, wall thickening and marked periappendiceal inflammatory changes, consistent with acute appendicitis. ADDENDUM: 07/16/23 0457 THIS REPORT CONTAINS FINDINGS THAT MAY BE CRITICAL TO PATIENT CARE. The findings were verbally communicated via telephone conference with JOSE ARMANDO ESTEVEZ at 4:55 AM CDT on 07/16/2023. The findings were acknowledged and understood. Laboratory Results WBC 14.56 10^3/uL (3.29-11.43) H 07/16/23 04:12 RBC 4.77 10^6/uL (3.85-5.65) 07/16/23 04:12 Hgb 13.70 g/dL (11.27-16.99) 07/16/23 04:12 Hct 40.2 % (37-53) 07/16/23 04:12 MCV 84.3 fl (82-101) 07/16/23 04:12 MCH 28.7 pg (27-33) 07/16/23 04:12 MCHC 34.1 g/dL (30-55) 07/16/23 04:12 RDW 12.4 % (12.1-15.1) 07/16/23 04:12 Plt Count 233 10^3/cmm (157-399) 07/16/23 04:12 MPV 9.2 fL (7.4-10.4) 07/16/23 04:12 Neut % (Auto) 88.1 % 07/16/23 04:12 Lymph % (Auto) 4.1 % 07/16/23 04:12 [place] % (Auto) 7.4 % 07/16/23 04:12 Eos % (Auto) 0.0 % 07/16/23 04:12 Baso % (Auto) 0.1 % 07/16/23 04:12 Neut # (Auto) 12.81 10^3/uL (1.8-7.7) H 07/16/23 04:12 Lymph # (Auto) 0.6 10^3/uL (0.8-4.8) L 07/16/23 04:12 [place] # (Auto) 1.1 10^3/uL (0.2-0.9) H 07/16/23 04:12 Eos # (Auto) 0.0 10^3/uL (0.0-0.8) 07/16/23 04:12 Baso # (Auto) 0.0 10^3/uL (0.0-0.1) 07/16/23 04:12 Nucleated RBC % (auto) 0 % 07/16/23 04:12 Nucleated RBCs # 0.0 /100WBC 07/16/23 04:12 Sodium 137 mmol/L (136-145) 07/16/23 04:12 Potassium 4.1 mmol/L (3.5-5.1) 07/16/23 04:12 Chloride 102 mmol/L (98-107) 07/16/23 04:12 Carbon Dioxide 24 mmol/L (22-29) 07/16/23 04:12 Anion Gap 15.1 (5-19) 07/16/23 04:12 BUN 11 mg/dL (6-20) 07/16/23 04:12 Creatinine 0.8 mg/dL (0.7-1.2) 07/16/23 04:12 GFR Calculation 116.9 mL/min (90-130) 07/16/23 04:12 Glucose 139 mg/dL (65-115) H 07/16/23 04:12 Calculated Osmolality 286 mOsm/kg (285-295) 07/16/23 04:12 Calcium 9.6 mg/dL (8.5-10.5) 07/16/23 04:12 Total Bilirubin 1.2 mg/dL (0.15-1.2) 07/16/23 04:12 AST 13 U/L (0-40) 07/16/23 04:12 ALT 15 U/L (0-41) 07/16/23 04:12 Alkaline Phosphatase 62 U/L (40-130) 07/16/23 04:12 C-Reactive Protein 6.8 mg/L (0.0-4.9) H 07/16/23 04:12 Total Protein 7.5 g/dL (6.6-8.7) 07/16/23 04:12 Albumin 4.5 g/dL (3.5-5.2) 07/16/23 04:12 Globulin 3.0 g/dL (1.3-4.6) 07/16/23 04:12 Lipase 26 U/L (13-60) 07/16/23 04:12 Urine Color Yellow (Yellow) 07/16/23 04:18 Urine Appearance Clear (CLEAR) 07/16/23 04:18 Urine pH 8 (5-7) H 07/16/23 04:18 Ur Specific [place] 1.010 (1.005-1.030) 07/16/23 04:18 Urine Protein Neg (Negative) 07/16/23 04:18 Urine Glucose (UA) 1+ (Normal) H 07/16/23 04:18 Urine Ketones 2+ (Negative) H 07/16/23 04:18 Urine Blood Neg (Negative) 07/16/23 04:18 Urine Nitrate Negative (Negative) 07/16/23 04:18 Urine Bilirubin Neg (Negative) 07/16/23 04:18 Prot Sulfosalicylic Acd Negative (Negative) 07/16/23 04:18 Urine Urobilinogen Neg mg/dL (Negative) 07/16/23 04:18 Ur Leukocyte Esterase Negative (Negative) 07/16/23 04:18 Discharge Plan Discharge Patient Disposition: Placed in Observation Clinical Impression: Acute appendicitis Coding Level of Care Code ED Engineering Technician for Kevin Bower
[2023-07-16] MEDS: sodium chloride 0.9% 500 ML IV (04:01)
[2023-07-16] MEDS: ketorolac 30 mg/mL INJ 15 MG IVP (04:02)
[2023-07-16] MEDS: ondansetron 2 mg/ML SDV 2 mL 4 MG IVP (04:02)
[2023-07-16 04:15] LABS: Basophils % 0.1 %; Hematocrit 40.2 % (37-53); Lymphocytes # 0.6 10^3/uL (0.8-4.8); Lymphocytes % 4.1 %; Mean Corpuscular HGB Conc 34.1 g/dL (30-55); Mean Corpuscular Hemoglobin 28.7 pg (27-33); Mean Corpuscular Volume 84.3 fl (82-101); Mean Platelet Volume 9.2 fL (7.4-10.4); Monocytes # 1.1 10^3/uL (0.2-0.9); Monocytes % 7.4 %; Neutrophils # 12.81 10^3/uL (1.8-7.7); Neutrophils % 88.1 %; Nucleated Red Blood Cells % 0 %; Platelet Count 233 10^3/cmm (157-399); Red Blood Count 4.77 10^6/uL (3.85-5.65); Red Cell Distribution Width 12.4 % (12.1-15.1); White Blood Count 14.56 10^3/uL (3.29-11.43)
--- NOTE | 2023-07-16 04:18 | CTR_ITS ---
PROCEDURE INFORMATION: Exam: CT Abdomen And Pelvis With Contrast Exam date and time: 07/16/2023 4:28 AM Age: 28 years old Clinical indication: Abdominal pain; Localized; Right lower quadrant (rlq); Patient HX: C/O rlq pain. Elevated wbc. TECHNIQUE: Imaging protocol: Computed tomography of the abdomen and pelvis with contrast. Radiation optimization: All CT scans at this facility use at least one of these dose optimization techniques: automated exposure control; mA and/or kV adjustment per patient size (includes targeted exams where dose is matched to clinical indication); or iterative reconstruction. Contrast material: OMNI 350; Contrast volume: 100 ml; Contrast route: INTRAVENOUS (IV); REPORTING DATA: Count of CT and Cardiac NM exams in prior 12 months: This patient has received 0 known CTs and 0 known cardiac nuclear medicine studies in the 12 months prior to the current study. COMPARISON: CR XR chest 1V portable [id number] 06/13/2021 8:24 AM RADIATION DOSE METRICS: Total DLP (mGy-cm): 562.2 FINDINGS: Liver: Normal. No mass. Gallbladder and bile ducts: Normal. No calcified stones. No ductal dilation. Pancreas: Normal. No ductal dilation. Spleen: Normal. No splenomegaly. Adrenal glands: Normal. No mass. Kidneys and ureters: Normal. No hydronephrosis. Stomach and bowel: Unremarkable. No obstruction. No mucosal thickening. Appendix: The appendix is distended up to 1.6 cm in diameter, with 1.0 cm appendicolith along the base, wall thickening and marked periappendiceal inflammatory changes, consistent with acute appendicitis. Intraperitoneal space: Unremarkable. No free air. No significant fluid collection. Vasculature: Unremarkable. No abdominal aortic aneurysm. Lymph nodes: Unremarkable. No enlarged lymph nodes. Urinary bladder: Unremarkable as visualized. Reproductive: Unremarkable as visualized. Bones/joints: Unremarkable. No acute fracture. Soft tissues: Unremarkable. CT/CT abdomen pelvis w con* [id number] IMPRESSION: The appendix is distended up to 1.6 cm in diameter, with 1.0 cm appendicolith along the base, wall thickening and marked periappendiceal inflammatory changes, consistent with acute appendicitis.
[2023-07-16 04:27] LABS: Add Urine Microscopic? NO; Charge for UA Resulting for Rev
[2023-07-16] MEDS: iohexol 350 mg/mL 500 mL Btl (per mL) IV (04:30)
[2023-07-16 04:33] LABS: Urine Appearance Clear (CLEAR); Urine Color Yellow (Yellow); pH Urine 8 (5-7)
[2023-07-16 04:33] LABS: Alanine Aminotransferase 15 U/L (0-41); Albumin Level 4.5 g/dL (3.5-5.2); Alkaline Phosphatase 62 U/L (40-130); Anion Gap 15.1 (5-19); Aspartate Amino Transferase 13 U/L (0-40); Blood Urea Nitrogen 11 mg/dL (6-20); C Reactive Protein 6.8 mg/L (0.0-4.9); Calcium 9.6 mg/dL (8.5-10.5); Carbon Dioxide 24 mmol/L (22-29); Chloride 102 mmol/L (98-107); Glomerular Filtration Rate 116.9 mL/min (90-130); Glucose 139 mg/dL (65-115); Lipase 26 U/L (13-60); Osmolality Calculated 286 mOsm/kg (285-295); Potassium 4.1 mmol/L (3.5-5.1); Sodium 137 mmol/L (136-145); Total Bilirubin 1.2 mg/dL (0.15-1.2); Total Protein 7.5 g/dL (6.6-8.7)
[2023-07-16 04:34] LABS: Bilirubin Urine Neg (Negative); Blood Urine Neg (Negative); Glucose Urine UA 1+ (Normal); Ketones Urine 2+ (Negative); Leukocyte Esterase Urine Negative (Negative); Nitrate Urine Negative (Negative); Protein Urine Neg (Negative); Sulfosalicylic Acid Urine Negative (Negative); Urobilinogen Urine Neg (Negative)
[2023-07-16] MEDS: piperacillin-tazobactam 3.375 GM in sodium chloride 0.9% (plus) 50 ML IV (05:09)
--- NOTE | 2023-07-16 05:35 | PC.NURSE ---
report called to KURTIS Torres on med-surg
[2023-07-16] MEDS: lactated ringers 1,000 ML 125 ML IV (06:14)
--- NOTE | 2023-07-16 06:44 | P.HP_ITS ---
Providers/Chief Complaint Admitting Physician: Leonardo Lyman MD Chief Complaint: abdomin pain History of Present Illness Driss Giraldo JR is a 28 year old male without significant medical history who presents to the hospital complaining of 12 hours of right lower quadrant abdominal pain, pain associated with 1 episode of nausea vomit, no changes in bowel movements. Pain started in the periumbilical region, migrated to her right lower quadrant, currently pain is about 8/10. Review of Systems Narrative: A 10 point review of systems was done and is negative otherwise noted in HPI Medications/Allergies Home Medications Medication Instructions Recorded Confirmed Last Taken Type azithromycin 250 mg tablet See Rx Instructions PO .COMPLEX #6 12/07/22 12/07/22 Unknown Rx tabs Allergies Allergy/AdvReac Type Severity Reaction Status Date / Time No Known Allergies Allergy Verified 12/07/22 07:27 PFSH Acute PFSH: Medical History No pertinent family history No pertinent past medical history Surgical History No pertinent past surgical history Social History Smoking and tobacco status: never smoked Second hand smoke exposure: Yes Smoking risk assessment/counseling performed?: No Alcohol intake: current Counseling given: No Substance/Drug Use: never Counseling given: No Lives independently: Yes Household members: none Marital status: Single Current occupational status: employed Do you think of yourself as: Straight/Heterosexual Current gender identity: Male Vitals/I&O/Wt Last Vital Signs Temp 99.9 F H 07/16/23 05:49 Pulse 109 H 07/16/23 05:49 Resp 19 H 07/16/23 05:49 BP 136/71 07/16/23 05:49 Pulse Ox 99 07/16/23 05:49 O2 Del Method Room Air 07/16/23 05:49 07/15/23 07/15/23 07/16/23 14:59 22:59 06:59 Intake Total 50 / 50 Balance 50 / 50 Weight last 48 hrs Weight 190 lb Physical Exam Narrative: General : Patient is well developed , no acute distress, oriented x3 Head : Normal cephalic, a-traumatic. Nose : Mucous membranes are without erythema. Lungs : Equal chest rise bilaterally, no use of accessory muscles, trachea is midline. CV : Rate and rhythm are normal. Abdomen : Abdomen is soft, there is tenderness in the right lower quadrant, no peritoneal signs at the moment, McBurney's positive and Rovsing is positive Extremities : No edema. Upper extremities are normal bilaterally. Back : non-tender to palpation, no CVA tenderness. Data 07/16/23 04:12 07/16/23 04:12 A&P Assessment and plan (1) Acute appendicitis: Plan After a complete history, physical examination and review of all available clinical data the following is my assessment. Patient clinical picture, lab oratory work-up and imaging is consistent with the diagnosis of acute appendicitis. Imaging review reveals a very inflamed appendix, with an appendicolith at the base. I have started the patient on IV antibiotics, keep him n.p.o. and have offered a laparoscopic possible open appendectomy. All the risk and benefits of the procedure were discussed including the risk of injury to surrounding structures including the colon small bowel, bladder, and risks of abscess formation, risk of conversion to open procedure, risk of bleeding, risk of wound infection, risk of requiring additional surgical interventions. Patient knowledges the risks and wishes to proceed with the operation. Procedure will be booked for this morning, patient may be discharged after surgery, depending on Intra-Op findings. Attestations Medical Necessity Statement*: Patient with acute appendicitis will require surgical treatment of his disease. Coding Level of Care Code Acute Code for [facility] Diagnoses Acute appendicitis K35.80
--- NOTE | 2023-07-16 07:04 | P.ANESASSM_ITS ---
Pre-Anesthetic Assessment Height/Weight: Height 1.68 m Weight 86.183 kg Temp Pulse Resp BP Pulse Ox O2 Del Method 99.9 F H 120 H 16 135/78 98 Room Air 07/16/23 06:59 07/16/23 06:59 07/16/23 06:59 07/16/23 06:59 07/16/23 06:59 07/16/23 06:59 Preop Diagnosis: Acute appendicitis Operation Date: 07/16/23 07:00 Proposed Procedures p Laparoscopic Appendectomy(Not Applicable) - Leonardo Lyman MD Familial anesthetic complications: None Was Beta Elisa taken within 24 hours: N/A Was Clonidine taken within 24 hours: N/A Last intake: Intake Last Liquid Date 07/15/23 Last Liquid Time 22:00 Last Solid Date 07/15/23 Last Solid Time 23:00 Social No alcohol and No tobacco Exam alert, oriented x 3, clear to auscultation bilaterally and regular rate & rhythm Airway Mallampati: Class II Dentition: chipped Pulmonary HX spontaneous PTX Anesthetic Plan ASA status: 2 Anesthesia: General Risk of > 500 ml blood loss (7ml/kg in children): No Medications/Allergies Home Medications Medication Instructions Recorded Confirmed Last Taken Type azithromycin 250 mg tablet See Rx Instructions PO .COMPLEX #6 12/07/22 12/07/22 Unknown Rx tabs Allergies Allergy/AdvReac Type Severity Reaction Status Date / Time No Known Allergies Allergy Verified 12/07/22 07:27 Current Medications Generic Name Dose Route Start Last Admin Trade Name Freq PRN Reason Stop Dose Admin Lactated Ringer's 1,000 mls @ 125 mls/hr 07/16/23 05:49 07/16/23 06:14 Lactated Ringers IV 125 mls/hr .Q8H GIL Administration PFSH Anesthesia Medical History No pertinent family history No pertinent past medical history Surgical History No pertinent past surgical history Social History Smoking and tobacco status: never smoked Second hand smoke exposure: Yes Smoking risk assessment/counseling performed?: No Alcohol intake: current Counseling given: No Substance/Drug Use: never Counseling given: No Lives independently: Yes Household members: none Marital status: Single Current occupational status: employed Do you think of yourself as: Straight/Heterosexual Current gender identity: Male Data Anesthesia 07/16/23 04:12 07/16/23 04:12 Short CBC 07/16/23 Range/Units 04:12 WBC 14.56 H (3.29-11.43) 10^3/uL Hgb 13.70 (11.27-16.99) g/dL Hct 40.2 (37-53) % MCV 84.3 (82-101) fl Plt Count 233 (157-399) 10^3/cmm Neut % (Auto) 88.1 % Neut # (Auto) 12.81 H (1.8-7.7) 10^3/uL BMP 07/16/23 04:12 Sodium 137 Potassium 4.1 Chloride 102 Carbon Dioxide 24 BUN 11 Creatinine 0.8 Glucose 139 H Calcium 9.6 Liver Function 07/16/23 Range/Units 04:12 Total Bilirubin 1.2 (0.15-1.2) mg/dL AST 13 (0-40) U/L ALT 15 (0-41) U/L Alkaline Phosphatase 62 (40-130) U/L Albumin 4.5 (3.5-5.2) g/dL Urine 07/16/23 Range/Units 04:18 Urine Color Yellow (Yellow) Urine Appearance Clear (CLEAR) Urine pH 8 H (5-7) Ur Specific [place] 1.010 (1.005-1.030) Urine Protein Neg (Negative) Urine Glucose (UA) 1+ H (Normal) Urine Ketones 2+ H (Negative) Urine Nitrate Negative (Negative) Urine Bilirubin Neg (Negative) Ur Leukocyte Esterase Negative (Negative) Coags 07/16/23 04:12 C-Reactive Protein 6.8 H Cardiac Studies: No Data to Display
[2023-07-16] MEDS: sodium chloride 0.9% 1,000 ML 30 ML IV (07:05)
[2023-07-16] MEDS: acetaminophen 1,000 MG/100 ML PIGGYBACK 400 MG IV (07:36)
--- NOTE | 2023-07-16 07:41 | PC.PHAR ---
PT NOT IN RUM-NO HOME MEDICATIONS ON EXTERNAL MED LIST
[2023-07-16] MEDS: lidocaine-epi 1% 20 mL INJ INJECTION (07:51)
[2023-07-16] MEDS: BUPivacaine 0.25% INJ 10 mL INJECTION (07:51)
--- NOTE | 2023-07-16 08:35 | PM.OP ---
Operative Report Date of procedure: July 16, 2023 Pre-op diagnosis: Preop Diagnosis Acute appendicitis Post-op diagnosis: Acute appendicitis Procedure done: Laparoscopic appendectomy Implants: No Specimens removed/disposition: Appendix Surgeon: Leonardo Lyman MD Estimated blood loss: 10cc Complications: none Findings: There was an inflamed and dilated appendix located in the right paracolic gutter, there was local inflammatory changes, close to the base of the appendix there is a small area with ischemic changes on the appendiceal wall, no gross perforation noted. Brief History: This a 28-year-old male who presented with 12 hours of abdominal pain in the right lower quadrant, laboratory work-up showed an elevated white count and CT scan of the abdomen was positive for evidence of acute appendicitis with a 1 cm appendicolith at the base. After lengthy discussion regarding the risk and benefits as documented in my preoperative H&P I offered laparoscopic appendectomy, patient agree to the procedure. Procedure: Patient was taken to the OR, placed in the supine position, general anesthesia was given. The abdomen was prepped and draped in the usual sterile fashion. Timeout was conducted. The abdomen was entered at the level of the umbilicus using an open technique, Teresa trocar was inserted and fixed to the fascia with 0 Vicryl. A 0 degree scope was used to evaluate the intra-abdominal contents and ensure no injury was created. We then placed 2 additional 5 mm trocars in the suprapubic and left lower quadrant position. The appendix was identified in the right lower quadrant, it was noted to be twisting upwards on the right paracolic gutter, there was significant inflammatory changes on the periappendiceal region including the fat, the appendix was carefully dissected using blunt dissection and Enseal. The mesoappendix was then taken down with Enseal to the base of the appendix. There was a small area of ischemia at the level of the base of the appendix, therefore we proceeded with mobilization about 2 cm of the base/cecum to allow for staple line to lay on the healthy part of the bowel. We then transected the appendix using a 45 mm blue load Endo REGINO stapler. The staple line looked healthy after the transection, no local injury was identified. The appendix was then extracted through the umbilical port site in an Endo Catch bag. Hemostasis was verified, appendiceal base was rechecked for evidence of injury and none was found. We then proceeded to close the umbilical trocar site, I did this with a Daniel-Telma suture passer and 0 Vicryl under direct visualization. The suprapubic trocar was then removed under direct visualization, pneumoperitoneum was evacuated through the left lower quadrant trocar and the trocar was subsequently removed. The 0 Vicryl used to fix the Teresa trocar to the fascia was then tied down to close the anterior abdominal wall fascia. The wounds were then closed with #4-0 Monocryl and Dermabond was applied. At the end of the procedure all counts were correct the patient was extubated and transferred to the PACU in stable condition.
--- NOTE | 2023-07-16 09:10 | ANE.PACU2 ---
Inpatient post-anesthesia follow up: Airway intact: Yes Vital signs: Temperature 99.8 F Pulse Rate 80 Respiratory Rate 18 Blood Pressure 153/66 Pulse Oximetry 94 Oxygen Delivery Me thod Room Air Oxygen Flow Rate Fraction of Inspir ed Oxygen Hydration adequate: Yes Nausea and vomiting: No Pain level: 1 Mental status: Baseline
--- NOTE | 2023-07-16 10:40 | PC.CHAP ---
Pastoral Care Encounter/Spiritual Assessment Type of Contact [] Declined technical staff engineer visit [] Patient/Family/Request visit [] Outpatient visit [] Follow-up visit [] Physician referral [] Code/Alert x[] Routine visit [] Staff referral [] Actively dying [] Patient sleeping [x] Family support [] [] Out of room [] Palliative care [] [] Receiving care in room [] Pre-surgical visit [] Trauma [] Long length of stay [] ICU visit [] Other: Relational/Emotional Strength [x] Patient feels connected with others/family/visitors/staff [] Distress [] Loneliness/isolation [] Abandonment Spirituality of Patient [x] Person of Nayeli [] Attends Yazidism of their Nayeli [x] Believes in Prayer [] Reads Bible or Gnosticist materials [] There are Spiritual issues to be addressed Director Database Interventions x] Prayer [x] Active listening [] Non-anxious presence [] Spiritual/emotional support [] Crisis/trauma care [] Spiritual counseling [] Bereavement support [] Provided bereavement packet [] Provided Bible/devotional materials [] Provided toy/stuffed animal, coloring book to patient or family member [] Provided Communion [] Anointing/[place] [] Salvation [x] Completed spiritual assessment [] Other: Impact on Illness or Injury [] Angry [] Fearful [] Anxious [] Often cries [] Exhaustion [] Unable to work [] Unable to attend synagogue [] Unable to walk/stand [] Unable to read [] Unable to drive [] Unable to eat/drink [] Unable to sleep [] Unable to be with family [] Patient intubated [] Other: Summary Time spent with patient 10 min
--- NOTE | 2023-07-16 11:35 | PC.NURSE ---
Waiting for f/u appt for d/c.
== END 2023-07-16 13:28 | disposition home or self-care (01) ==
LOC: ER 05:05 → MEDSURG 05:15
PROVIDERS: Admitting Provider Surgery; Emergency Provider Emergency Medicine; PCP Family Medicine; Visit Provider Surgery
PROC: 0DTJ4ZZ Resection of Appendix, Percutaneous Endoscopic Approach (ICD-10-PCS; CPT 44970; principal; 2023-07-16 07:00)
DX: K35.80 Unspecified acute appendicitis (principal)
CPT/HCPCS: 44970; 74177; 80053; 81003; 83690; 85025; 86140; 88304; 96365; 96375; 99285; G0378; J0131; J1100; J1170; J1885; J2405; J2543; J2704; J2710; J3010; J3490; J7030; J7040; J7120; Q9967